=== PATIENT | male | born 1955 | race Caucasian/White ===

== ENCOUNTER 2021-04-07 10:56 | Outpatient (CLI) | payer MEDICARE, SELFPAY ==
--- NOTE | ~2021-04-07 | XR_ITS ---
XR_[id number]_CR DATE: 04/07/2021 11:22 INDICATION: Lower lateral right rib pain TECHNIQUE: PA chest. 4 views of the right ribs. COMPARISON: None FINDINGS: Normal heart size. There is aortic calcification and mild tortuosity. No hilar or mediastin al enlargement. The lungs are clear of infiltrate or consolidation. No pleural effusion or pulmonary vascular congestion or pneumothorax. There is diffuse idiopathic skeletal hyperostosis of the thoracic spine. No rib fracture or bone destruction is evident. IMPRESSION: No active cardiopulmonary disease Aortic calcification and tortuosity No rib fracture is evident Diffuse idiopathic skeletal hyperostosis of the thoracic spine Reviewed, dictated and finalized at Location [facility]. Reviewed, dictated and finalized at location B. NICAL SUPERVISOR
== END 2021-04-07 10:57 | disposition home or self-care (01) ==
LOC: ANHIMG 11:08
PROVIDERS: PCP Physician Assistant; Visit Provider Physician Assistant
DX: R07.81 Pleurodynia (principal); I70.0 Atherosclerosis of aorta; M48.14 Ankylosing hyperostosis [Forestier], thoracic region
CPT/HCPCS: 71101

== ENCOUNTER 2024-05-06 15:26 | Outpatient (CLI) | payer OTHER, SELFPAY ==
[2024-05-06 16:00] LABS: Alanine Aminotransferase 42 U/L (6-50); Albumin Level 4.4 g/dL (3.5-5.1); Alkaline Phosphatase 71 U/L (38-126); Anion Gap 8 mmol/L (4-12); Aspartate Amino Transferase 32 U/L (17-59); Bilirubin,Total 1.1 mg/dL (0.2-1.3); Blood Urea Nitrogen 21 mg/dL (9-20); Calcium 9.1 mg/dL (8.4-10.2); Carbon Dioxide 28 mmol/L (22-30); Chloride 102 mmol/L (98-107); Estimated Glomerular Filt Rate > 60; Glucose 101 mg/dL (65-110); Potassium 4.5 mmol/L (3.4-5.0); Sodium 138 mmol/L (137-145)
== END 2024-05-06 15:27 | disposition home or self-care (01) ==
LOC: ANHLAB 15:28
PROVIDERS: PCP Family Medicine; Visit Provider Family Medicine
DX: I10 Essential (primary) hypertension (principal)
CPT/HCPCS: 36415; 80053

== ENCOUNTER 2025-03-06 09:23 | Outpatient (CLI) | payer OTHER, SELFPAY ==
--- NOTE | 2025-03-06 09:42 | ECG_ITS ---
Test Date: 2025-03-06 09:46:30 Measurements Intervals [place] Rate: 71 P: 61 ID: [id number] QRS: -10 QRSD: 114 T: 28 QT: 364 QTc: 397 Interpretive Statements SINUS RHYTHM WITHIN NORMAL LIMITS No previous ECG available for comparison Electronically Signed On 03-06-2025 11:24:31 SURGICAL INSTRUMENTS INSPECTOR by Jonnathan Ordoñez M.D.
== END 2025-03-06 09:24 | disposition home or self-care (01) ==
LOC: ANHSURGERY 09:29
PROVIDERS: PCP Family Medicine; Visit Provider Urology
DX: E78.5 Hyperlipidemia, unspecified (principal); I10 Essential (primary) hypertension
CPT/HCPCS: 93005

== ENCOUNTER 2025-03-17 03:21 | Day surgery (SDC) | payer OTHER, SELFPAY ==
[2025-03-02 14:58] VITALS: BMI 28.3
--- NOTE | 2025-03-02 15:07 | PC.NURSE ---
[facility] has started construction of its new state of the art ER which will open Spring 2026. With this, we anticipate parking may be a challenge for some our surgical patients and families. Parking spaces are limited but are available for all Surgical, obstetrics, and ER patients sharing this lot. If you arrive and find you are having a hard time finding a parking space, please note that we understand the challenges, please drive around the hospital and park near Hospital Entrance 1. When you enter this entrance, you can ask a volunteer to direct or take you back to the surgical waiting area to check in. We appreciate everyone?s understanding of these expected challenges while we build for your future. Report to the Outpatient Waiting Room, entrance under the green pavilion located off [address], at time __0930am on date ___03/17/25 ____. Planned Procedure Time: _1130am .? Time changes happen often and if your time is changed the preop area will call you the afternoon before. - You and your visitor will be asked to self-screen and do not enter if you have any COVID symptoms. Please call surgeon if you need to reschedule. - A mask is optional within the hospital at this time. Patients may have clear liquids (water, carbonated beverages, clear teas, apple juice) until 3 hours prior to surgery with a maximum of 20 ounces. - No food from midnight until time of surgery and no smoking, or chewing tobacco (or any form of nicotine). No chewing gum, candy or mints. (0830am) Take only the following medications with a SIP of water on the morning of surgery: ___NONE DO NOT STOP ANY OF YOUR OTHER PRESCRIPTION MEDICATIONS PRIOR TO SURGERY EXCEPT THE FOLLOWING Hold all vitamins and supplements for 3 days per anesthesiologist. Medications to discontinue per physician NONE Date to take last dose NONE Please no make-up, nail turkmen, hairspray, perfume, deodorant, or body powder the day of surgery.? No jewelry (including any body piercings) or valuables the day of surgery, leave them at home.? Please take a shower or bath the night before, or the morning of, surgery with an antibacterial soap.DIAL SOAP ? Wear comfortable, loose fitting clothing.? Children are encouraged to wear pajamas. - Jewelry must be removed prior to entering the operating room.? Rings and piercings that are not removed may be cut off. - The hospital will not accept responsibility for valuables.? - Please leave all valuables, including medications, at home the day of surgery. If you are going home after surgery, a licensed dedicated local truck driver must drive you home.? - NO public transportation without another adult if you receive anesthesia. - We recommend that an adult stay with you for 24 hours following discharge. - We also recommend that you do not drive, make important decision, drink alcoholic beverages, or take any drugs that were not prescribed by your health care provider for at least 24 hours after your discharge time. Follow any additional instructions given to you from your surgeon. Telephone instructions given to __Patient and asked if any additional questions and then verbalized understanding. Patient advised to call surgeon office or pre surgery nurse liaison [phone] if any additional questions.
--- NOTE | 2025-03-17 10:51 | WPDHPUPDATE1 ---
History and Physical Update Update Date/Time: 03/17/25 10:51 History and Physical has been reviewed, including an updated exam of the patient. There are NO changes in the patient's condition. Risks, benefits, and alternatives have been discussed and questions answered. Patient agrees to proceed with procedure.
--- NOTE | 2025-03-17 10:51 | PM.HPGS ---
History of Present Illness History of Present Illness Consent: Risks, benefits, and alternatives have been discussed and questions answered. Patient agrees to proceed with procedure. Chief complaint: elevated PSA Narrative: Aditya Plummer is a 69 year old male with history of elevated PSA who was found to have a suspicious PI-RADS 5 lesion on follow-up MRI. He presents today for MRI guided biopsy of the prostate. Review of Systems Review of Systems: Constitutional: No fevers or chills Eyes: No changes in vision HENT: No hearing loss Cardiovascular: No chest pain or palpitations Respiratory: No shortness of breath, cough, wheezing GI: No abdominal pain, nausea, or vomiting : No dysuria or difficulty urinating Heme: No easy bruising or bleeding Skin: No rash or itching MSK: No myalgias or joint pain Psych: No hallucinations Neuro: No lateralized numbness or tingling PMFSH Past Medical History Medical History Hyperlipidemia Essential (primary) hypertension Impaired glucose tolerance (oral) Family History Family History Mother Patient's mother is in good health Father Family history of malignant neoplasm Other Family history of cardiovascular disease Family history of malignant neoplasm of urinary bladder Hypertension Malignant neoplasm of prostate Social History Social History Social History: Spouse Smoking status: Never smoker Second hand tobacco smoke exposure: No Alcohol intake: current Drinks per week: 28 Substance use: never Substance use type: does not use Lack of Transportation: No Lack of Food: Never True Current Housing: I Have Housing Concerned About Future Housing: No Difficulty Paying Gas/Electric Bills: No Difficulty Paying for Meds: No Currently Unemployed: YES Education: Don't Know Difficulty w/ Childcare or Family Care: No Living arrangements: with family Occupation/Education: retired Gender identity (if verbalized by the patient): Male Sexual Orientation (if Verbalized by the Patient): Straight or Heterosexual Spiritual care concerns: No Meds Home Medications and Allergies Home Medications ?Medication ?Instructions ?Recorded ?Confirmed ?Type tadalafil 10 mg tablet 20 mg (2 x 10 mg) PO DAILY PRN 11/01/23 03/02/25 Rx sexual activity #90 tabs olmesartan 20 mg tablet 30 mg (1.5 x 20 mg) PO DAILY 90 10/09/24 03/02/25 Rx days #135 tabs simvastatin 10 mg tablet 10 mg PO DAILY #90 tabs 10/09/24 03/02/25 Rx Allergies Allergy/AdvReac Type Severity Reaction Status Date / Time No Known Allergies Allergy Verified 03/02/25 14:57 Exam Narrative: General: Alert, no acute distress Head: Normocephalic, atraumatic Eyes: Extraocular movements intact Neck: No JVD, trachea midline Respiratory: Symmetric chest rise, nonlabored breathing on room air CV: Normal rate, adequate peripheral perfusion Abdomen: Soft, nontender, nondistended Skin: Warm/dry Extremities: No peripheral edema, no cyanosis Neuro: No focal deficits Psych: Answers questions appropriately, appropriate mood Assessment and Plan Assessment and plan (1) Elevated PSA: Code(s): R97.20 - Elevated prostate specific antigen [PSA] Status: Acute Assessment and Plan: 69-year-old male with elevated PSA found to have a suspicious PI-RADS 5 lesion on follow-up MRI of the prostate - To OR for MRI guided fusion biopsy of the prostate - 1 g IV ertapenem pre-op antibiotics - Risks, benefits, alternatives reviewed. The patient is amenable to proceed - Anticipate discharge home thereafter
[2025-03-17 12:40] VITALS: BP 146/80; PULSE 78; TEMP 36.3; O2SAT 99; BMI 28.3
[2025-03-17] MEDS: LACTATED RINGERS 1,000 ML 30 ML IV CONT (12:40)
--- NOTE | 2025-03-17 13:05 | WPDANESEPPF ---
Anes - Initial Pre Proc Eval Procedure: Operation Date: 03/17/25 14:00 Proposed Procedures p Trans Rectal Fusion Guided Prostate Biopsy - Christian Cook MD Date/Time: 03/17/25 13:05 Surgeon: Christian Cook MD Pre Op Diagnosis: elevated PSA Patient Data Age: 69 Gender: M Height: 1.91 m Weight: 102.7 kg Last Vital Signs Temp 97.3 F L 03/17/25 12:40 Pulse 78 03/17/25 12:40 BP 146/80 H 03/17/25 12:40 Pulse Ox 99 03/17/25 12:40 O2 Del Method Room Air 03/17/25 12:40 Allergies Allergy/AdvReac Type Severity Reaction Status Date / Time No Known Allergies Allergy Verified 03/02/25 14:57 Home Medications ?Medication ?Instructions ?Recorded ?Confirmed ?Type tadalafil 10 mg tablet 20 mg (2 x 10 mg) PO DAILY PRN 11/01/23 03/02/25 Rx sexual activity #90 tabs olmesartan 20 mg tablet 30 mg (1.5 x 20 mg) PO DAILY 90 10/09/24 03/17/25 Rx days #135 tabs simvastatin 10 mg tablet 10 mg PO DAILY #90 tabs 10/09/24 03/17/25 Rx EC03/06/25 SR 71 Patient hx anesthesia problems: none Family hx anesthesia problems: none Results Review: All pre-operative results and documents have been reviewed as part of the pre-operative evaluation. [facility] Past Medical History Medical History Hyperlipidemia Essential (primary) hypertension Impaired glucose tolerance (oral) Family History Family History Mother Patient's mother is in good health Father Family history of malignant neoplasm Other Family history of cardiovascular disease Family history of malignant neoplasm of urinary bladder Hypertension Malignant neoplasm of prostate Social History Social History Social History: Spouse Smoking status: Never smoker Second hand tobacco smoke exposure: No Alcohol intake: current Drinks per week: 28 Substance use: never Substance use type: does not use Lack of Transportation: No Lack of Food: Never True Current Housing: I Have Housing Concerned About Future Housing: No Difficulty Paying Gas/Electric Bills: No Difficulty Paying for Meds: No Currently Unemployed: YES Education: Don't Know Difficulty w/ Childcare or Family Care: No Living arrangements: with family Occupation/Education: retired Gender identity (if verbalized by the patient): Male Sexual Orientation (if Verbalized by the Patient): Straight or Heterosexual Spiritual care concerns: No Anes - Eval Final PreProcedure Day of Procedure 03/17/25 13:05 Patient weight: overweight (BMI 28) Heart: regular rate and rhythm Lungs: clear to auscultation Airway: Mallampati scale class II Neurological: alert and oriented Last oral intake: >/= 8 hours (solids ) and 6 hours (liquids) ASA classification: III Emergent: no Anesthetic plan: proceed Anesthesia type and monitoring: general GIVS (LMA if needed) Results Review: All pre-operative results and documents have been reviewed as part of the pre-operative evaluation. Informed Consent: The patient's anesthetic plan and its attendant risks and benefits were discussed with the patient/family/POA. Questions were solicited and answers provided to the satisfaction of the patient/family/POA.
--- NOTE | 2025-03-17 13:32 | WPDANESEPPF ---
Anes - Initial Pre Proc Eval Procedure: Operation Date: 03/17/25 14:00 Proposed Procedures p Trans Rectal Fusion Guided Prostate Biopsy - Christian Cook MD Date/Time: 03/17/25 13:32 Surgeon: Christian Cook MD Pre Op Diagnosis: elevated PSA Patient Data Age: 69 Gender: M Height: 1.91 m Weight: 102.7 kg Last Vital Signs Temp 36.3 C L 03/17/25 12:40 Pulse 78 03/17/25 12:40 BP 146/80 H 03/17/25 12:40 Pulse Ox 99 03/17/25 12:40 O2 Del Method Room Air 03/17/25 12:40 Allergies Allergy/AdvReac Type Severity Reaction Status Date / Time No Known Allergies Allergy Verified 03/02/25 14:57 Home Medications ?Medication ?Instructions ?Recorded ?Confirmed ?Type tadalafil 10 mg tablet 20 mg (2 x 10 mg) PO DAILY PRN 11/01/23 03/02/25 Rx sexual activity #90 tabs olmesartan 20 mg tablet 30 mg (1.5 x 20 mg) PO DAILY 90 10/09/24 03/17/25 Rx days #135 tabs simvastatin 10 mg tablet 10 mg PO DAILY #90 tabs 10/09/24 03/17/25 Rx Patient hx anesthesia problems: none Family hx anesthesia problems: none Results Review: All pre-operative results and documents have been reviewed as part of the pre-operative evaluation. [facility] Past Medical History Medical History Hyperlipidemia Essential (primary) hypertension Impaired glucose tolerance (oral) Family History Family History Mother Patient's mother is in good health Father Family history of malignant neoplasm Other Family history of cardiovascular disease Family history of malignant neoplasm of urinary bladder Hypertension Malignant neoplasm of prostate Social History Social History Social History: Spouse Smoking status: Never smoker Second hand tobacco smoke exposure: No Alcohol intake: current Drinks per week: 28 Substance use: never Substance use type: does not use Lack of Transportation: No Lack of Food: Never True Current Housing: I Have Housing Concerned About Future Housing: No Difficulty Paying Gas/Electric Bills: No Difficulty Paying for Meds: No Currently Unemployed: YES Education: Don't Know Difficulty w/ Childcare or Family Care: No Living arrangements: with family Occupation/Education: retired Gender identity (if verbalized by the patient): Male Sexual Orientation (if Verbalized by the Patient): Straight or Heterosexual Spiritual care concerns: No Anes - Eval Final PreProcedure Day of Procedure 03/17/25 13:32 Patient weight: overweight Heart: regular rate and rhythm Lungs: clear to auscultation Airway: Mallampati scale class II Neurological: alert and oriented Last oral intake: >/= 8 hours ASA classification: III Emergent: no Anesthetic plan: proceed Anesthesia type and monitoring: general GIVS and standard monitoring Results Review: All pre-operative results and documents have been reviewed as part of the pre-operative evaluation. Informed Consent: The patient's anesthetic plan and its attendant risks and benefits were discussed with the patient/family/POA. Questions were solicited and answers provided to the satisfaction of the patient/family/POA.
[2025-03-17] MEDS: ERTAPENEM SODIUM 1 GM in SODIUM CHLORIDE 0.9% IV 50 ML 100 ML IVPB (13:35)
--- NOTE | 2025-03-17 13:49 | S_PTH ---
PATIENT: Aditya Plummer LOC: [facility] U#:[id number] AGE/SX: 69/M ROOM: RE03/17/[address]: Christian Cook MD : [id number] BED: DIS: 03/17/2025 SPEC #: [id number] RECD: 03/17/25 14:17 STATUS: MARTIN RE #: [id number] ROLAND: 03/17/25 13:[address]: Christian Cook DEPT: [facility] Surgical RECD BY: Cherelle Ogden ENTERED: 03/17/25 14:19 SP TYPE: Surgical OTHR DR: Blair Scott MD Tissues: A - Prostate Bx B - Prostate Bx C - Prostate Bx D - Prostate Bx E - Prostate Bx F - Prostate Bx G - Prostate Bx H - Prostate Bx I - Prostate Bx J - Prostate Bx K - Prostate Bx L - Prostate Bx M - Prostate Bx Procedures: Unstained Slides Hematoxylin and Eosin Stain Prostate Biopsy
--- NOTE | 2025-03-17 13:58 | W.PM.PROC2 ---
Procedure Note - Detailed Date of Procedure 03/17/25 Pre-op Diagnosis Elevated PSA Post-op Diagnosis Same Procedure Performed 1. MRI guided fusion biopsy of the prostate Surgeon Christian Cook MD Anesthesia General Description of Procedure INDICATIONS FOR PROCEDURE: ?Aditya Plummer is a 69 year old gentleman with history of elevated PSA who was found to have suspicious PI-RADS 5 lesion on MRI of his prostate. He presents today for the aforementioned procedure after having reviewed the risks, benefits, and alternatives and having expressed understanding and agreement to proceed. ? DESCRIPTION OF PROCEDURE: ?After informed consent had been obtained, the patient was brought back to the operating theater and placed in the supine position on the operating table, where anesthesia was induced. ?Pre-operative antibiotics were confirmed to have been administered. He was then placed the lateral decubitus position and?prepped and draped in a standard sterile fashion. ?A formal timeout was then performed to confirm the correct patient, procedure, and to address any questions or concerns from the operating room staff; there were none, and all were in agreement to proceed. ? To begin with, we inserted the transrectal ultrasound probe into the patient's rectum atraumatically and identified the?prostate. The MRI images were then fused with the ultrasound images. We then identified the PI RADS lesion seen on MRI and took 3 biopsies of this area. A standard sextant biopsy was then performed, taking two biopsies from the left and right base, mid, and apical portions of the prostate. The ultrasound probe was then removed and digital pressure was applied in the rectum for approximately 1 minute for hemostatic purposes and this essentially concluded the case. The patient was then awoken from anesthesia without complication and transferred to his bed and then taken to the PACU. ?There were no apparent complications and the patient tolerated the procedure well. ? DISPOSITION: ?The patient will be taken to the PACU for further monitoring and be discharged home once clearing PACU protocol. ?The patient will follow-up in about 2 weeks to review pathology and discuss next steps in management. Patient's was provided with an update following the procedure and all questions were answered to their satisfaction at the conclusion of our discussion.
[2025-03-17 14:03] VITALS: BP 120/80; PULSE 88; RESP 14; O2SAT 96
[2025-03-17 14:30] VITALS: BP 129/81; PULSE 81; RESP 14
== END 2025-03-17 14:46 | disposition home or self-care (01) ==
PROVIDERS: PCP Family Medicine; Visit Provider Urology
PROC: (CPT 55700; principal; 2025-03-17 14:00)
DX: N42.89 Other specified disorders of prostate (principal)
CPT/HCPCS: 55700; 76872; G0416; J1335; J2003; J2250; J2704; J3010; J7120